=== PATIENT | male | born 1940 | race Caucasian/White ===

== ENCOUNTER 2016-04-27 11:26 | Emergency (ER) | payer OTHER ==
[~2016-04-27] VITALS: Ht 172.7 cm; Wt 90.0 kg
[~2016-04-27 11:26] MED LIST: ATOR20TA42 PO; COUM2TAB PO; COUM3TAB PO; FISH1000 PO; FLUTI44I INH; IPRA0.02 INH; KLOR20TA6 PO; LASI20TA PO; LORA10TA7 PO; PACE200T4 PO; SLO-NIACIN; TAB-TAB PO; TOPR200T PO; [UNRECOGNIZED DRUG - CODE] PO
[2016-04-27] MEDS ORDERED: SODIUM CHLORIDE 0.9% FLUSH 5 ML FLUSH IVF PRN (11:45)
[2016-04-27 12:15] LABS: AUTOMATED NEUTROPHIL # 6.3 TH/MM3 (1.8-7.7); BASOPHIL % 0.3 % (0.0-2.0); EOSINOPHIL # 0.1 TH/MM3 (0-0.4); EOSINOPHIL % 0.9 % (0.0-4.0); HEMATOCRIT 40.5 % (39.0-51.0); HEMO FLAGS DIFF FINAL; LYMPH % 10.2 % (9.0-44.0); LYMPHOCYTE # 0.9 TH/MM3 (1.0-4.8); MEAN CELL VOLUME 96.6 FL (80.0-100.0); MEAN CORPUSCULAR HEMOGLOBIN 33.5 PG (27.0-34.0); MEAN CORPUSCULAR HGB CONC 34.7 % (32.0-36.0); MONO % 12.2 % (0.0-8.0); NEUT % 76.4 % (16.0-70.0); PLATELET COUNT 103 TH/MM3 (150-450); RED BLOOD COUNT 4.19 MIL/MM3 (4.50-5.90); RED CELL DISTRIBUTION WIDTH 14.4 % (11.6-17.2); WHITE BLOOD COUNT 8.3 TH/MM3 (4.0-11.0)
--- NOTE | 2016-04-27 12:21 | PD ---
HPI Chief Complaint: shortness of breath Time Seen by Provider: 12:00 Travel History International Travel<30 days: No Contact w/Intl Traveler<30days: No Traveled to known affect area: No History of Present Illness HPI 75-year-old male with history of CHF, atrial fibrillation, sleep apnea, prediabetes who presents for evaluation of dyspnea. Since yesterday the patient has had increased dyspnea. Symptoms are worse when walking, lying him flat. He does endorse occasional slight tightness on the left side of his chest without actual pain and no discomfort at this time. He is endorse a slight cough as well. Denies fevers or chills, recent travel, calf swelling. Any dietary indiscretion. He reports that his regular physician is Dr. Vallejo , d[place] Dr. Sky. He has no other complaints at this time. [facility] Past Medical History Narrative Medical chf, atrial fibrillation, sleep apnea, hyperlipidemia Social History Alcohol Use: No Tobacco Use: Yes Allergies-Medications (Allergen,Severity, Reaction): Coded Allergies: No Known Allergies (Verified , 04/27/16) Reported Meds & Prescriptions Reported Meds & Active Scripts Active Review of Systems Except as stated in HPI: all other systems reviewed are Neg Physical Exam Narrative GENERAL: Well-developed well-nourished male in no acute distress, conversing normally. SKIN: Warm and dry. HEAD: Atraumatic. Normocephalic. EYES: Pupils equal and round. No scleral icterus. No injection or drainage. ENT: No nasal bleeding or discharge. Mucous membranes pink and moist. NECK: Trachea midline. No JVD. CARDIOVASCULAR: Regular rate and rhythm. No murmur appreciated. RESPIRATORY: No accessory muscle use. Clear to auscultation. Breath sounds equal bilaterally. No crackles no wheezing or rhonchi GASTROINTESTINAL: Abdomen soft, non-tender, nondistended. Hepatic and splenic margins not palpable. MUSCULOSKELETAL: No obvious deformities. No edema. NEUROLOGICAL: Awake and alert. No obvious cranial nerve deficits. Motor grossly within normal limits. Normal speech. Data Data Last Documented VS Vital Signs Date Time Temp Pulse Resp B/P Pulse Ox O2 Delivery O2 Flow Rate FiO2 04/27/16 13:20 91 2 04/27/16 13:13 99.0 70 22 106/59 Orders Complete Blood Count With Diff (04/27/16 11:37) Comprehensive Metabolic Panel (04/27/16 11:37) B-Type Natriuretic Peptide (04/27/16 11:37) Act Partial Throm Time (Ptt) (04/27/16 11:37) Prothrombin Time / Inr (Pt) (04/27/16 11:37) Magnesium (Mg) (04/27/16 11:37) Ckmb (Isoenzyme) Profile (04/27/16 11:37) Troponin I (04/27/16 11:37) Iv Access Insert/Monitor (04/27/16 11:37) Electrocardiogram (04/27/16 11:37) Ecg Monitoring (04/27/16 11:37) Oximetry (04/27/16 11:37) Oxygen Administration (04/27/16 11:37) Chest, Single Ap (04/27/16 11:37) Sodium Chloride 0.9% Flush (Ns Flush) (04/27/16 11:45) CKMB (04/27/16 11:44) CKMB% (04/27/16 11:44) Furosemide Inj (Lasix Inj) (04/27/16 13:30) Labs Laboratory Tests Test 04/27/16 11:44 White Blood Count 8.3 TH/MM3 Red Blood Count 4.19 MIL/MM3 Hemoglobin 14.0 GM/DL Hematocrit 40.5 % Mean Corpuscular Volume 96.6 FL Mean Corpuscular Hemoglobin 33.5 PG Mean Corpuscular Hemoglobin 34.7 % Concent Red Cell Distribution Width 14.4 % Platelet Count 103 TH/MM3 Mean Platelet Volume 10.8 FL Neutrophils (%) (Auto) 76.4 % Lymphocytes (%) (Auto) 10.2 % Monocytes (%) (Auto) 12.2 % Eosinophils (%) (Auto) 0.9 % Basophils (%) (Auto) 0.3 % Neutrophils # (Auto) 6.3 TH/MM3 Lymphocytes # (Auto) 0.9 TH/MM3 Monocytes # (Auto) 1.0 TH/MM3 Eosinophils # (Auto) 0.1 TH/MM3 Basophils # (Auto) 0.0 TH/MM3 CBC Comment DIFF FINAL Differential Comment Prothrombin Time 15.6 SEC Prothromb Time International 1.4 RATIO Ratio Activated Partial 48.3 SEC Thromboplast Time Sodium Level 137 MEQ/L Potassium Level 4.4 MEQ/L Chloride Level 102 MEQ/L Carbon Dioxide Level 27.5 MEQ/L Anion Gap 8 MEQ/L Blood Urea Nitrogen 20 MG/DL Creatinine 1.31 MG/DL Estimat Glomerular Filtration 53 ML/MIN Rate Random Glucose 228 MG/DL Calcium Level 8.6 MG/DL Magnesium Level 1.9 MG/DL Total Bilirubin 0.9 MG/DL Aspartate Amino Transf 37 U/L (AST/SGOT) Alanine Aminotransferase 52 U/L (ALT/SGPT) Alkaline Phosphatase 63 U/L Total Creatine Kinase 151 U/L Creatine Kinase MB 2.6 NG/ML Troponin I 0.03 NG/ML B-Type Natriuretic Peptide 88 PG/ML Total Protein 7.0 GM/DL Albumin 3.8 GM/DL [facility] Medical Decision Making Medical Screen Exam Complete: Yes Emergency Medical Condition: Yes Medical Record Reviewed: Yes Differential Diagnosis CHF exacerbation, bronchitis, pneumothorax, acute coronary syndrome, pulmonary embolism Narrative Course 75-year-old male with history of atrial fibrillation, on pradaxa, CHF who presents with increased dyspnea since yesterday. On examination he appears well. He reports that he took his 20 mg Lasix this morning and has been feeling improved since calling EMS. Plan is for basic lab work, chest x-ray, EKG and reassessment. The patient was initially seen on the ambulance mora where a workup was initiated. The patient will be moved to medical pod where he'll be examined and disposition by a physician. He is currently stable. Procedures EKG Prior to Arrival: Yes Rodger Gibbons Apr 27, 2016 12:21
[2016-04-27 12:22] LABS: APTT (PATIENT) 48.3 SEC (24.3-30.1); INTERNATIONAL NORMALIZED RATIO 1.4 RATIO; PROTHROMBIN TIME - PATIENT 15.6 SEC (9.8-11.6)
--- NOTE | 2016-04-27 12:25 | RADRPT ---
EXAM DATE/TIME: 04/27/2016 11:51 [facility] COMPARISON: No previous studies available for comparison. INDICATIONS : Shortness of breath. MEDICAL HISTORY : None. SURGICAL HISTORY : None. ENCOUNTER: Initial ACUITY: 1 day PAIN SCORE: 0/10 LOCATION: Bilateral chest FINDINGS: A single view of the chest demonstrates cardiomegaly with increased pulmonary vascularity and interst itial edema. The cardiomediastinal contours are unremarkable. Osseous structures are intact. CONCLUSION: Cardiomegaly and interstitial edema. Kevin Wolfe MD on April 27, 2016 at 12:19 Board Certified Radiologist. This report was verified electronically.
[2016-04-27 12:28] LABS: ALT (GPT) 52 U/L (12-78); ANION GAP 8 MEQ/L (5-15); AST (GOT) 37 U/L (15-37); BICARBONATE 27.5 MEQ/L (21.0-32.0); BLOOD UREA NITROGEN 20 MG/DL (7-18); CHLORIDE 102 MEQ/L (98-107); GLOMERULAR FILTRATION RATE 53 ML/MIN (>89); MAGNESIUM 1.9 MG/DL (1.5-2.5); POTASSIUM 4.4 MEQ/L (3.5-5.1); SODIUM (NA) 137 MEQ/L (136-145)
[2016-04-27 12:32] LABS: ALKALINE PHOSPHATASE 63 U/L (45-117); CREATINE KINASE 151 U/L (39-308); TOTAL BILIRUBIN ADULT 0.9 MG/DL (0.2-1.0)
[2016-04-27 12:44] LABS: CKMB 2.6 NG/ML (0.5-3.6)
[2016-04-27 13:13] VITALS: BP 106/59; PULSE 70; RESP 22; TEMP 99; O2SAT 91
--- NOTE | 2016-04-27 13:18 | PD ---
Physical Exam Date Seen by Provider: Apr 27, 2016 Time Seen by Provider: 13:00 Narrative I, Dr. Briggs, have reviewed the advance practice practitioner's documentation and am in agreement, met with the patient face to face, made the diagnosis, and the medical decision making was done by me. *My assessment and Findings: Patient seen and evaluated with PA, please see MIGEL Gibbons note for further details. Patient has long history of CHF, has been on Lasix 20 daily, and has noticed that he has been getting short of breath with orthopnea. He has had dyspnea on exertion. He states that he took his Lasix this morning and is already feeling better by the time he got to the ER. He states that a similar thing happened yesterday morning as well. He denies any chest pains or any other symptoms. GENERAL: Well-nourished, well-developed pleasant elderly white male patient in no acute distress. Awake and oriented 3. SKIN: Warm and dry. HEAD: Normocephalic. EYES: No scleral icterus. No injection or drainage. NECK: Supple, trachea midline. CARDIOVASCULAR: Regular rate and rhythm without murmurs, gallops, or rubs. RESPIRATORY: Breath sounds equal but decreased at the bases bilaterally. No accessory muscle use. GASTROINTESTINAL: Abdomen soft, non-tender, nondistended. MUSCULOSKELETAL: No cyanosis, or edema. BACK: Nontender without obvious deformity. No CVA tenderness. Data Data Orders Complete Blood Count With Diff (04/27/16 11:37) Comprehensive Metabolic Panel (04/27/16 11:37) B-Type Natriuretic Peptide (04/27/16 11:37) Act Partial Throm Time (Ptt) (04/27/16 11:37) Prothrombin Time / Inr (Pt) (04/27/16 11:37) Magnesium (Mg) (04/27/16 11:37) Ckmb (Isoenzyme) Profile (04/27/16 11:37) Troponin I (04/27/16 11:37) Iv Access Insert/Monitor (04/27/16 11:37) Electrocardiogram (04/27/16 11:37) Ecg Monitoring (04/27/16 11:37) Oximetry (04/27/16 11:37) Oxygen Administration (04/27/16 11:37) Chest, Single Ap (04/27/16 11:37) Sodium Chloride 0.9% Flush (Ns Flush) (04/27/16 11:45) CKMB (04/27/16 11:44) CKMB% (04/27/16 11:44) Labs Laboratory Tests Test 04/27/16 11:44 White Blood Count 8.3 TH/MM3 Red Blood Count 4.19 MIL/MM3 Hemoglobin 14.0 GM/DL Hematocrit 40.5 % Mean Corpuscular Volume 96.6 FL Mean Corpuscular Hemoglobin 33.5 PG Mean Corpuscular Hemoglobin 34.7 % Concent Red Cell Distribution Width 14.4 % Platelet Count 103 TH/MM3 Mean Platelet Volume 10.8 FL Neutrophils (%) (Auto) 76.4 % Lymphocytes (%) (Auto) 10.2 % Monocytes (%) (Auto) 12.2 % Eosinophils (%) (Auto) 0.9 % Basophils (%) (Auto) 0.3 % Neutrophils # (Auto) 6.3 TH/MM3 Lymphocytes # (Auto) 0.9 TH/MM3 Monocytes # (Auto) 1.0 TH/MM3 Eosinophils # (Auto) 0.1 TH/MM3 Basophils # (Auto) 0.0 TH/MM3 CBC Comment DIFF FINAL Differential Comment Prothrombin Time 15.6 SEC Prothromb Time International 1.4 RATIO Ratio Activated Partial 48.3 SEC Thromboplast Time Sodium Level 137 MEQ/L Potassium Level 4.4 MEQ/L Chloride Level 102 MEQ/L Carbon Dioxide Level 27.5 MEQ/L Anion Gap 8 MEQ/L Blood Urea Nitrogen 20 MG/DL Creatinine 1.31 MG/DL Estimat Glomerular Filtration 53 ML/MIN Rate Random Glucose 228 MG/DL Calcium Level 8.6 MG/DL Magnesium Level 1.9 MG/DL Total Bilirubin 0.9 MG/DL Aspartate Amino Transf 37 U/L (AST/SGOT) Alanine Aminotransferase 52 U/L (ALT/SGPT) Alkaline Phosphatase 63 U/L Total Creatine Kinase 151 U/L Creatine Kinase MB 2.6 NG/ML Troponin I 0.03 NG/ML B-Type Natriuretic Peptide 88 PG/ML Total Protein 7.0 GM/DL Albumin 3.8 GM/DL [facility] Medical Record Reviewed: Yes Supervised Visit with FRANCES: Yes Interpretation(s) Last 24 hours Impressions Chest X-Ray 04/27/16 5427 Signed Impressions: Service Date/Time: Wednesday, April 27, 2016 11:51 - CONCLUSION: Cardiomegaly and interstitial edema. Kevin Wolfe MD Laboratory Tests Test 04/27/16 11:44 Red Blood Count 4.19 MIL/MM3 (4.50-5.90) Platelet Count 103 TH/MM3 (150-450) Neutrophils (%) (Auto) 76.4 % (16.0-70.0) Monocytes (%) (Auto) 12.2 % (0.0-8.0) Lymphocytes # (Auto) 0.9 TH/MM3 (1.0-4.8) Monocytes # (Auto) 1.0 TH/MM3 (0-0.9) Prothrombin Time 15.6 SEC (9.8-11.6) Activated Partial 48.3 SEC Thromboplast Time (24.3-30.1) Blood Urea Nitrogen 20 MG/DL (7-18) Creatinine 1.31 MG/DL (0.60-1.30) Estimat Glomerular Filtration 53 ML/MIN (>89) Rate Random Glucose 228 MG/DL (74-106) Differential Diagnosis Shortness of breathCHF versus pneumonia versus COPD exacerbation Narrative Course BNP is not significantly elevated. Chest x-ray shows some signs of interstitial edema concerning for underlying mild CHF. He reports improvement after taking Lasix. At this point, my plan would be to increase his dose of Lasix since this appears to be helping and have him follow-up with residential roofer helper. Return for any worsening in symptoms as necessary. The plan has been discussed with him and he states understanding. Diagnosis Primary Impression: CHF exacerbation Med/Other Pt SpecificInfo: Existing Med Changed (double dose of Lasix to 40 mg daily) Disposition: 01 DISCHARGE HOME Condition: Stable Phoenix Briggs MD Apr 27, 2016 13:18
[2016-04-27] MEDS ORDERED: FUROSEMIDE 40 MG/4 ML VIAL IV PUSH ONE (13:30)
[2016-04-27] MEDS ORDERED: METF1000 PO (13:58)
[2016-04-27] MEDS ORDERED: ATOR10TA15 PO (13:58)
[2016-04-27] MEDS ORDERED: ALAV10TA10 PO (13:58)
[2016-04-27] MEDS ORDERED: DILT-64 PO (13:58)
[2016-04-27] MEDS ORDERED: ISOS30TA3 PO (13:58)
[2016-04-27] MEDS ORDERED: ALLO100T PO (13:58)
[2016-04-27] MEDS ORDERED: FURO1TAB62 PO (13:58)
[2016-04-27] MEDS ORDERED: LEVO50TA4 PO (13:58)
[2016-04-27] MEDS ORDERED: TOPR100T PO (13:58)
[2016-04-27] MEDS ORDERED: DIGO0.12 PO (13:58)
[2016-04-27] MEDS ORDERED: POTA1TAB4 PO (13:58)
[2016-04-27] MEDS ORDERED: LOSA25TA PO (13:58)
[2016-04-27] MEDS ORDERED: PRAD150C PO (13:58)
--- NOTE | 2016-04-28 08:55 | EKG ---
Date Performed: 04/27/2016 Time Performed: 13:09:13 PTAGE: 75 years EKG: ATRIAL FIBRILLATION ABNORMAL RHYTHM ECG PREVIOUS TRACING : 01/01/2010 04.27 DOCTOR: Jaden Jorge Interpretating Date/Time 04/28/2016 08:50:33
== END 2016-04-27 14:42 | disposition home or self-care (01) ==
LOC: NEPC 11:26
DX: I50.9 Heart failure, unspecified (principal); I51.7 Cardiomegaly; I48.91 Unspecified atrial fibrillation; G47.30 Sleep apnea, unspecified
CPT/HCPCS: 71010; 80053; 82550; 82552; 83735; 83880; 84484; 85025; 85610; 85730; 93005; 96374; 99285; J1940

== ENCOUNTER 2017-03-24 06:47 | Day surgery (SDC) | payer OTHER ==
[~2017-03-24 06:47] MED LIST changes: +ALAV10TA10 PO; +ALLO100T PO; +ATOR10TA15 PO; -ATOR20TA42 PO; -COUM2TAB PO; -COUM3TAB PO; +DIGO0.12 PO; +DILT240C44 PO; -FISH1000 PO; -FLUTI44I INH; +FURO1TAB62 PO; -IPRA0.02 INH; +ISOS30TA3 PO; -KLOR20TA6 PO; -LASI20TA PO; +LEVO50TA4 PO; -LORA10TA7 PO; +LOSA25TA PO; +METF1000 PO; -PACE200T4 PO; +POTA1TAB4 PO; +PRAD150C PO; -SLO-NIACIN; -TAB-TAB PO; +TOPR100T PO; -TOPR200T PO; -[UNRECOGNIZED DRUG - CODE] PO
[2017-03-24] MEDS ORDERED: APIX5TAB PO (07:18)
[2017-03-24] MEDS ORDERED: POVIDONE IODINE 5% (ANTISEPSIS KIT) 4 APPLICATIONS EACH NARE SCH (07:30)
[2017-03-24] MEDS ORDERED: NS 1000 ML IV SCH (07:30)
[2017-03-24] MEDS ORDERED: ceFAZolin 2 GM PREMIX 50 ML IV SCH (07:30)
[2017-03-24] MEDS ORDERED: MUPIROCIN 2% OINT 1 APPLIC/GM SYR NASAL SCH (07:30)
[2017-03-24] MEDS ORDERED: CHLORHEXIDINE GLUCONATE 2 % 1 PACK (2 CLOTHS) TOPICAL SCH (07:30)
[2017-03-24] MEDS ORDERED: MIDAZOLAM HCL 5 MG/ML VIAL (1 ML) ONE (07:58)
--- NOTE | 2017-03-24 09:49 | MA ---
cc: FRANCK KENNEDY MD DATE 03/24/2017 PERFORMING PHYSICIAN Franck Kennedy MD INDICATION Syncope PROCEDURES PERFORMED 1. 15 minutes of moderate IV sedation. 2. Loop recorder insertion. DESCRIPTION OF PROCEDURE The patient was brought to the DOC unit in the postabsorptive state. After informed consent was obtained, 3 mg of Versed and 75 mcg Fentanyl was given for moderate IV sedation. Next, a [employer] LINQ loop recorder was inserted subcutaneously to the left chest. The patient tolerated procedure well without any apparent complications. Tachybrady pause and atrial fibrillation detection was enabled. The serial number was [id number]. The initial R-wave was 0.71 mV. MD JONATHAN Weir/KAYLA /8:38 AM /9:41 AM
== END 2017-03-24 09:32 | disposition home or self-care (01) ==
LOC: HDIC 06:47 → HDOC 06:47
PROVIDERS: ATTEND Nuclear Medicine Nuclear Cardiology
DX: R55 Syncope and collapse (principal)
CPT/HCPCS: 33282; 99152; C1764; J0690; J2250; J3010

== ENCOUNTER 2017-05-10 06:08 | Day surgery (SDC) | payer OTHER ==
[~2017-05-10] VITALS: Ht 172.7 cm; Wt 87.2 kg
[2017-05-10] VITALS (13 sets, daily range): BP systolic 106–146; BP diastolic 64–87; PULSE 60–91; RESP 16; TEMP 97.3–98.4; O2SAT 92–97
[~2017-05-10 06:08] MED LIST changes: +APIX5TAB PO; -PRAD150C PO
[2017-05-10] MEDS ORDERED: ceFAZolin 2 GM PREMIX 50 ML IV SCH (06:45)
[2017-05-10] MEDS: NS 1000 ML IV SCH (06:45)
[2017-05-10] MEDS ORDERED: LORazepam 1 MG TAB SL SCH (06:45)
[2017-05-10] MEDS ORDERED: VANCOMYCIN 1000 MG/NS 250 ML IV SCH ×2 (06:45)
[2017-05-10] MEDS ORDERED: Hold AM Insulin & AM Hypoglycemic medications in diabetic patients PRN (06:45)
[2017-05-10] MEDS ORDERED: LACTATED RINGER'S 1000 ML IV PRN (06:45)
[2017-05-10] MEDS ORDERED: MUPIROCIN 2% OINT 1 APPLIC/GM SYR NASAL SCH (06:45)
[2017-05-10] MEDS ORDERED: CHLORHEXIDINE GLUCONATE 2 % 1 PACK (2 CLOTHS) TOPICAL PRN (06:45)
[2017-05-10] MEDS ORDERED: POVIDONE IODINE 5% (ANTISEPSIS KIT) 4 APPLICATIONS EACH NARE SCH (06:45)
[2017-05-10] MEDS ORDERED: POVIDONE IODINE 5% (ANTISEPSIS KIT) 4 APPLICATIONS EACH NARE PRN (06:45)
[2017-05-10] MEDS ORDERED: CHLORHEXIDINE GLUCONATE 2 % 1 PACK (2 CLOTHS) TOPICAL SCH (06:45)
[2017-05-10] MEDS ORDERED: NO Heparin, Lovenox, Coumadin at least 12 hours prior to procedure. PRN (06:45)
[2017-05-10] MEDS ORDERED: ESSE250T PO (07:20)
[2017-05-10] MEDS ORDERED: VITATAB43 PO (07:20)
[2017-05-10] MEDS ORDERED: ZOLP5TAB3 PO (07:20)
[2017-05-10 07:21] LABS: AUTOMATED NEUTROPHIL # 3.5 TH/MM3 (1.8-7.7); BASOPHIL % 0.6 % (0.0-2.0); EOSINOPHIL # 0.1 TH/MM3 (0-0.4); EOSINOPHIL % 1.9 % (0.0-4.0); HEMOGLOBIN 15.6 GM/DL (13.0-17.0); LYMPH % 30.9 % (9.0-44.0); MEAN CORPUSCULAR HGB CONC 35.4 % (32.0-36.0); MEAN PLATELET VOLUME 10.2 FL (7.0-11.0); MONOCYTE # 0.9 TH/MM3 (0-0.9); NEUT % 52.6 % (16.0-70.0); PLATELET COUNT 157 TH/MM3 (150-450); RED BLOOD COUNT 4.45 MIL/MM3 (4.50-5.90); RED CELL DISTRIBUTION WIDTH 14.4 % (11.6-17.2); WHITE BLOOD COUNT 6.6 TH/MM3 (4.0-11.0)
[2017-05-10 07:31] LABS: INTERNATIONAL NORMALIZED RATIO 1.1 RATIO; PROTHROMBIN TIME - PATIENT 10.7 SEC (9.8-11.6)
[2017-05-10 07:33] LABS: BICARBONATE 30.2 MEQ/L (21.0-32.0); CALCIUM 9.4 MG/DL (8.5-10.1); CREATININE 1.24 MG/DL (0.60-1.30)
[2017-05-10] MEDS ORDERED: LIDOCAINE HCL 2% 50 ML VIAL ONE ×2 (07:52→08:51)
[2017-05-10] MEDS ORDERED: VANCOMYCIN 500 MG VIAL ONE (07:53)
[2017-05-10] MEDS ORDERED: MIDAZOLAM HCL 2 MG/2 ML VIAL ONE (08:13)
[2017-05-10] MEDS ORDERED: SODIUM CHLORIDE 0.9% FLUSH 10 ML FLUSH IV FLUSH PRN (09:00)
[2017-05-10] MEDS ORDERED: ONDANSETRON HCL 4 MG/2 ML VIAL IV PUSH PRN (09:00)
[2017-05-10] MEDS: SODIUM CHLORIDE 0.9% FLUSH 10 ML FLUSH IV FLUSH SCH ×2 (09:00→22:06)
--- NOTE | 2017-05-10 09:17 | CATHPROC ---
[facility] HIS Report Study Information Study Number Admission Scheduled Start Study Start [id number] May 10 2017 6:08AM 05/10/2017 May 10 2017 6:57AM [place] [facility] Cardiac Pacer/ICD Admit Source Facility Department Other [facility] Physician and Clinical Staff Initial Kati Tilley Installer Oscar Reboleldo,RT(R) Other Jessica Go,DEMETRA Recorder Moses MCCRARY, Larissa Staton,RT(R) TECH2 Procedures Performed Procedure Lead Insertion Equipment Time Returned Telephone Equipment Appraiser Description Size Mfg Part Number Used/Scraped DERMABOND, ADHESIVE SKIN [id number] 06:59 CORDIS/PACER * Used GLUE MINI *[id number] 06:59 MEDLINE INDUSTRIES SUTURE, STRIP PLUS 1/2" * Used *[id number] 06:59 MEDLINE PACER OWENS, LIMB * 2530 *[id number] Used [id number] 06:59 MEDLINE PACER PACK, PACER CUSTOM * Used *[id number] 08:21 Landscape Mobile PACER SAFE SHEATH, FR7, 13CM FR 7 [id number] Used 08:21 [employer]scape Mobile PACER SAFE SHEATH, FR7, 13CM FR 7 [id number] Used 08:23 Needle Sponge Count 1 1 Used SUTURE, 0 ETHIBOND [CT1] (CX21D), 8pk SUTURE, 2-0 VICRYL [CT1] ([id number]) SUTURE, 2-0 VICRYL [CT1] ([id number]) [id number] 06:59 [employer],WARM AIR CCL * Used *[id number] [facility] PAD, ELECTROSURGICAL 06:59 * [id number] *[id number] Used SURGICAL GROUNDING ORANGE LEAD, CAPSURE FIX NOVUS, 4076-52CM 08:40 VITATRON MEDTRONIC 52CM Used 52CM *[id number] LEAD, CAPSURE FIX NOVUS, 4076-58CM 08:35 VITATRON MEDTRONIC 58CM Used 58CM *[id number] PACEMAKER, ADVISA DR MRI 08:37 VITATRON [employer]TRON[employer] OEA-DDDR [id number] Used SURESCAN [id number] 06:59 [employer] BRENDA. / * Used *[id number] Labs Hgb (g/dl) Hct (%) WBC (l/cumm) 11.60-17.00 35.00-51.00 4.00-11.00 15.6 44 6.6 Glucose (mg/dl) BUN (mg/dl) Creatinine (mg/dl) BUN:Creatinine (1:x) 74.00-106.00 7.00-18.00 0.50-1.30 10.00-20.00 141 23 1.2 19.2 Na (meq/l) K (meq/l) 136.00-145.00 3.50-5.10 139 4.3 INR (PTT:PT) 0.90-1.10 1.1 CPK-MB (ng/ML) 0.50-3.60 Not Drawn Medication Medication Total Dose (Bolus/Oral) Medication Total Dosage/Unit 2% XYLOCAINE 50 mL Medications (Bolus/Oral) Medication Time Given Dosage/Unit Administered By Reason 2% XYLOCAINE 05/10/2017 8:29:23 AM 50 mL Kati Santana 50 mL 2% XYLOCAINE given in lab by Kati Santana via Subcutaneous. Ordered by Kati Santana. Medication (Drip) Medication Time Given Dosage/Unit Concentration/Unit Diluent (ml) Solution ANCEF 05/10/2017 8:11:45 AM 2 g 2 g ANCEF given in lab by Jessica Go RN via Peripheral IV. Ordered by Kati Santana. VANCOMYCIN DRIP 05/10/2017 8:11:18 AM 1 g 1 g VANCOMYCIN DRIP given in lab by Jessica Go, DEMETRA via Peripheral IV. Ordered by Kati Santana. Chronological Log Time Study Chronological Log 7:55:49 MD arrived. 8:00:10 Patient arrived via Bed PT LEFT UPPER CHEST SIGNED BY DR SANTANA . 8:00:53 Patient Name, D.O.B, / Armband Verified By R.N. 8:01:16 Consent signed by the physician and the patient and verified by the [facility] staff. 8:01:24 Pre-op and post- op instructions given; patient acknowledges understanding of instructions. 8:03:50 History and physical on the chart or being dictated. 8:03:51 Anesthesia at bedside. Assumes care of patient. 8:11:18 1 g VANCOMYCIN DRIP given in lab by Jessica Go, DEMETRA via Peripheral IV. Ordered by Kati Neal. 8:11:45 2 g ANCEF given in lab by Jessica Go, DEMETRA via Peripheral IV. Ordered by Kati Santana. 8:12:05 Disposable Defibrillator Pads Placed On Patient. 8:12:11 David Prominences Protected 8:12:18 A # 20 IV was noted in the Antecubital (right). Grade = 0 8:12:42 A # 20 IV was noted in the Antecubital (left). Grade = 0 8:13:15 Table restraints applied according to hospital policy 8:13:40 Bovie ground pad applied to: RIGHT THIGH 8:13:58 2% CHLORHEXIDINE GLUCONATE WASH AND NASAL SWIPE DONE PRIOR TO PROCEDURE. 8:16:18 Left Upper Chest Prepped Times Two. 8:21:42 MD paged First Sponge And Instrument Count Done by Rajiv Lopes RN. 8:23:12 Hypo's: 3, Sponges: 20 sponges, 1 Bovie/scratch:1 bovie/scratch Sutures: 10, Blades: 1 Instruments: 26 8:26:16 MD arrived. Time Out. Correct patient, procedure, procedure equipment, site and side verified with physician present. Time 8:28:54 concurred by MD, individual staff and PRESIDENT AND CEO. 8:29:20 Case Start 8:29:23 50 mL 2% XYLOCAINE given in lab by Kati Santana via Subcutaneous. Ordered by Kati Santana. 8:31:33 Vascular access was obtained in the Subclav. Vein (Lft. 8:32:01 Vascular access was obtained in the Subclav. Vein (Lft. 8:32:53 Surgical Incision Made. 8:32:56 A pocket was created at the L Upper Chest. 8:34:21 A SAFE SHEATH, FR7, 13CM FR 7 was advanced into the Subclav. Vein (Lft using the Modified Se yusufinger technique. 8:34:38 A LEAD, CAPSURE FIX NOVUS, 58CM 58CM was inserted and positioned in the RV. 8:35:29 Lead placement verified under fluoroscopy 8:36:50 The RV lead impedance and threshold being tested. 8:37:53 SHEATH REMOVED 8:38:20 The RV lead was sutured to the fascia. 8:39:18 A SAFE SHEATH, FR7, 13CM FR 7 was advanced into the Subclav. Vein (Lft using the Modified Se yusufinger technique. 8:40:34 A LEAD, CAPSURE FIX NOVUS, 52CM 52CM was inserted and positioned in the RA. 8:40:47 Lead placement verified under fluoroscopy 8:41:37 The Atrial lead impedance and threshold is being tested. 8:42:06 SHEATH REMOVED 8:42:33 The Atrial lead was sutured to the fascia. 8:44:47 Pocket flushed with antibiotic solution 8:45:04 A PACEMAKER, TAINA BENITEZ OEA-DDDR was connected and placed in the pocket. 8:47:22 The pocket was closed. Second Sponge And Instrument Count Done by Jessica Go, DEMETRA. 8:48:15 Hypo's:3 hypo's, Sponges:20 sponges,1 Bovie/scratch:1 bovie/scratch Sutures: 10, Blades: 1, 8:52:50 Loop Recorder Removed. 8:54:03 LOOP Pocket flushed with antibiotic solution 8:54:50 Case End 8:54:58 Implant Procedure was performed. 8:55:06 A PPM Implant . (Dual) 8:56:57 Steri-strips and a sterile dressing applied to LOOP RECORDER site. The Final Sponge And Instrument Count Done by Kati Santana. 9:04:27 Hypo's:3 hypo's, Sponges: 20sponges, 1 Bovie/scratch:1 bovie/scratch Sutures:11, Blades: 1, Instruments: 26~, 9:05:33 Bedside Report will be given. 9:05:38 Steri-strips and a sterile dressing applied to site. 9:07:50 DOCU called. Spoke to MARLI Agosto RN 9:08:17 Implantable Device card placed in patient's chart. 9:16:28 A sling was placed on the affected arm. 9:16:42 Defibrillator and ground pads removed. Skin intact. 9:16:45 Patient moved to [facility] End Study - Contrast Media Used In Study Contrast Total Opened (mL) Total Used (mL) Total Wasted (mL) Unspecified 0 0 0 End Study - Maximum Contrast Load Max Contrast Load (mL) 360.4 End Study - Radiation Exposure Fluoro Time (minutes) 2.5 End Study - Sponge/Needle Count Sponge Count Pre Sponge Count Post Needle Count Pre Needle Count Post Procedure Procedure Procedure Procedure 20 20 3 3 End Study - Patient Disposition Complications Transferred To Interventional Outcome No Telemetry Bed successful
[2017-05-10] MEDS ORDERED: DO NOT ADM ANY ANTICOAGULANT DRUGS PRN (10:00)
[2017-05-10] MEDS: ACETAMINOPHEN/CODEINE 300 MG/30 MG TAB PO PRN ×4 (10:13→23:33)
--- NOTE | 2017-05-10 10:36 | RADRPT ---
EXAM DATE/TIME: 05/10/2017 09:53 [facility] COMPARISON: CHEST SINGLE AP, April 27, 2016, 11:51. INDICATIONS : Evaluate for pneumothorax. Post pacemaker. MEDICAL HISTORY : Myocardial infarction. Hypercholesterolemia. Congestive heart failure. GERD. Arthritis. Osteoporo sis. SURGICAL HISTORY : Appendectomy. Cholecystectomy. ENCOUNTER: Initial ACUITY: 1 day PAIN SCORE: 4/10 LOCATION: Bilateral chest FINDINGS: 2 AP views of the chest demonstrate cardiac silhouette size at the upper limits for normal. Left ches t wall cardiac pacing device is present with lead tips overlying the region of the right heart. No ef fusion, consolidation, or pneumothorax is seen. Bones demonstrate no acute finding. CONCLUSION: No pneumothorax is visualized following pacemaker placement. Bob Tripathi MD on May 10, 2017 at 10:34 Board Certified Radiologist. This report was verified electronically.
[2017-05-10] MEDS ORDERED: PROPOFOL 200 MG/20 ML AMP IV ONE (12:00)
[2017-05-10] MEDS ORDERED: LIDOCAINE HCL 1% PF 5 ML SYRINGE OTHER ONE (12:00)
[2017-05-10] MEDS: ceFAZolin 2 GM PREMIX 50 ML IV SCH ×2 (15:58→23:33)
[2017-05-10] MEDS ORDERED: METOPROLOL SUCCINATE 50 MG EXTENDED RELEASE TAB PO SCH (21:00)
[2017-05-10] MEDS ORDERED: TEMAZEPAM 15 MG CAP PO PRN (21:00)
[2017-05-10] MEDS ORDERED: LEVOTHYROXINE SODIUM 50 MCG TAB PO SCH (21:00)
[2017-05-10] MEDS ORDERED: ATORVASTATIN 10 MG TAB PO SCH (21:00)
[2017-05-10] MEDS ORDERED: ZOLPIDEM TARTRATE 5 MG TAB PO PRN (21:00)
[2017-05-10] MEDS: APIXABAN 5 MG TABLET PO SCH (22:06)
[2017-05-11] VITALS (12 sets, daily range): BP systolic 110–127; BP diastolic 66–71; PULSE 61–90; RESP 16–18; TEMP 97.3–97.7; O2SAT 94–95
[2017-05-11] MEDS: NS 1000 ML IV SCH (06:03)
[2017-05-11] MEDS ORDERED: DILTIAZEM-CD 240 MG CAP ER PO SCH ×2 (07:00→09:00)
[2017-05-11] MEDS: ACETAMINOPHEN/CODEINE 300 MG/30 MG TAB PO PRN (07:04)
[2017-05-11] MEDS: ceFAZolin 2 GM PREMIX 50 ML IV SCH (08:00)
[2017-05-11] MEDS: SODIUM CHLORIDE 0.9% FLUSH 10 ML FLUSH IV FLUSH SCH (08:30)
[2017-05-11] MEDS: APIXABAN 5 MG TABLET PO SCH (08:30)
[2017-05-11] MEDS ORDERED: CEPH-460 PO (08:38)
--- NOTE | 2017-05-11 08:41 | PD.CARD.PN ---
Subjective Subjective Remarks Feels okay. Objective Medications Current Medications Medications (Trade) Dose Ordered Sig/Ahsan Route Start Time Stop Time Status Last Admin Miscellaneous Information Hold AM Insulin & ... UNSCH PRN .XX 05/10/17 06:45 05/14/17 06:44 Miscellaneous Information NO Heparin, Loven... UNSCH PRN .XX 05/10/17 06:45 05/14/17 06:44 Sodium Chloride 1,000 ml @ 30 mls/hr Q24H IV 05/10/17 06:45 05/10/17 06:45 Cefazolin Sodium/ Dextrose 50 ml @ 100 mls/hr PHARMACY ANCILLARY IV 05/10/17 06:45 05/13/17 06:44 05/10/17 08:11 Vancomycin HCl 1000 mg/Sodium Chloride 250 ml @ 250 mls/hr PHARMACY ANCILLARY IV 05/10/17 06:45 05/13/17 06:44 05/10/17 08:11 (Ativan) 1 mg PHARMACY ANCILLARY SL 05/10/17 06:45 05/13/17 06:44 05/10/17 07:41 (Betadine 5% Antisepsis Kit) 2 applic PHARMACY ANCILLARY EACH NARE 05/10/17 06:45 05/13/17 06:44 05/10/17 07:25 (Bactroban Nasal 2% Oint) 1 applic PHARMACY ANCILLARY NASAL 05/10/17 06:45 05/13/17 06:44 (Chlorhexidine 2% Cloth) 3 pack PHARMACY ANCILLARY TOPICAL 05/10/17 06:45 05/13/17 06:44 05/10/17 07:25 Lactated Ringer's 1,000 ml @ 30 mls/hr Q24H PRN IV 05/10/17 06:45 05/13/17 06:44 (Betadine 5% Antisepsis Kit) 1 applic PHARMACY ANCILLARY PRN EACH NARE 05/10/17 06:45 05/13/17 06:44 (Chlorhexidine 2% Cloth) 3 pack PHARMACY ANCILLARY PRN TOPICAL 05/10/17 06:45 05/13/17 06:44 (Restoril) 15 mg HS PRN PO 05/10/17 21:00 (Zofran Inj) 4 mg Q4H PRN IV PUSH 05/10/17 09:00 (Tylenol-Codeine #3) 1 tab Q4H PRN PO 05/10/17 09:00 05/11/17 07:04 (Tylenol-Codeine #3) 2 tab Q4H PRN PO 05/10/17 09:00 05/10/17 23:33 (NS Flush) 2 ml BID IV FLUSH 05/10/17 09:00 05/11/17 08:30 (NS Flush) 2 ml UNSCH PRN IV FLUSH 05/10/17 09:00 Miscellaneous Information ALL NURSING DEPARTME... UNSCH PRN .XX 05/10/17 10:00 05/11/17 09:59 (Zyloprim) 100 mg AC DINNER PO 05/11/17 16:00 (Eliquis) 5 mg BID PO 05/10/17 21:00 05/11/17 08:30 (Lipitor) 10 mg HS PO 05/10/17 21:00 05/10/17 22:06 (Lanoxin) 0.125 mg DAILY PO 05/11/17 09:00 05/11/17 08:30 (Lasix) 20 mg DAILY PO 05/11/17 09:00 05/11/17 08:30 (Synthroid) 50 mcg HS PO 05/10/17 21:00 05/10/17 23:33 (Cozaar) 25 mg DAILY PO 05/11/17 09:00 05/11/17 08:30 (Glucophage) 1,000 mg BIDPC PO 05/11/17 09:00 05/11/17 08:30 (Toprol Xl) 100 mg HS PO 05/10/17 21:00 05/10/17 22:06 (KCl) 20 meq DAILY PO 05/11/17 09:00 05/11/17 08:30 (Ambien) 5 mg HS PRN PO 05/10/17 21:00 05/10/17 22:05 (Allbee C) 1 tab DAILY PO 05/11/17 09:00 (Cardizem Cd) 240 mg Q12H PO 05/11/17 07:00 05/11/17 08:29 Vital Signs / I&O Vital Signs Date Time Temp Pulse Resp B/P (MAP) Pulse Ox O2 Delivery O2 Flow Rate FiO2 05/11/17 07:01 69 05/11/17 06:00 61 05/11/17 05:00 67 05/11/17 04:00 90 05/11/17 03:00 97.3 77 16 110/66 (81) 94 05/11/17 03:00 94 Room Air 05/11/17 03:00 74 05/11/17 02:00 78 05/11/17 01:00 77 05/11/17 00:19 16 05/11/17 00:00 77 05/10/17 23:00 94 Room Air 05/10/17 23:00 97.4 77 16 106/64 (78) 92 05/10/17 23:00 75 05/10/17 22:00 77 05/10/17 21:00 78 05/10/17 20:00 78 05/10/17 19:00 97.3 76 16 119/68 (85) 94 05/10/17 19:00 94 Room Air 05/10/17 19:00 91 05/10/17 18:17 60 05/10/17 17:15 77 05/10/17 16:00 76 05/10/17 15:42 98.1 82 16 119/72 (88) 95 05/10/17 15:00 76 05/10/17 14:13 77 05/10/17 13:16 98.4 64 16 108/68 (81) 93 05/10/17 11:13 14 05/10/17 09:27 97 Room Air I/O 05/10/17 05/10/17 05/10/17 05/11/17 05/11/17 05/11/17 07:00 15:00 23:00 07:00 15:00 23:00 Intake Total 972 ml 530 ml Balance 972 ml 530 ml Intake Oral 922 ml 480 ml IV Total 50 ml 50 ml # Voids 3 3 # Bowel Movements 0 0 Physical Exam GENERAL: Well-nourished, well-developed patient. SKIN: Warm and dry. Incision clean, dry, without erythema or drainage. HEAD: Normocephalic. EYES: No scleral icterus. No injection or drainage. NECK: Supple, trachea midline. No JVD or lymphadenopathy. CARDIOVASCULAR: Regular rate and rhythm without murmurs, gallops, or rubs. RESPIRATORY: Breath sounds equal bilaterally. No accessory muscle use. GASTROINTESTINAL: Abdomen soft, non-tender, nondistended. EXTREMITIES: No cyanosis, or edema. NEUROLOGICAL: Awake, alert, and oriented x 3. Non-focal. Imaging Last Impressions Chest X-Ray 05/10/17 0000 Signed Impressions: Service Date/Time: Wednesday, May 10, 2017 09:53 - CONCLUSION: No pneumothorax is visualized following pacemaker placement. Bob Tripathi MD Assessment and Plan Problem List: (1) Bradycardia ICD Codes: R00.1 - Bradycardia, unspecified Plan: Pacing appropriately. (2) S/P cardiac pacemaker procedure ICD Codes: Z95.0 - Presence of cardiac pacemaker Plan: Device function appropriate, chest x-ray shows no pneumothorax. Stable for discharge home. Follow-up with Dr. Stoddard in 2 weeks per my discussion with him. Pati Perdomo May 11, 2017 08:41
[2017-05-11] MEDS ORDERED: DIGOXIN 0.125 MG TAB PO SCH (09:00)
[2017-05-11] MEDS ORDERED: VITAMIN B COMPLEX/VIT C TAB PO SCH (09:00)
[2017-05-11] MEDS ORDERED: FUROSEMIDE 20 MG TAB PO SCH (09:00)
[2017-05-11] MEDS ORDERED: POTASSIUM CHLORIDE 20 MEQ CONTROLLED RELEASE TAB PO SCH (09:00)
[2017-05-11] MEDS ORDERED: LOSARTAN 25 MG TAB PO SCH (09:00)
[2017-05-11] MEDS ORDERED: metFORMIN HCL 500 MG TAB PO SCH (09:00)
--- NOTE | 2017-05-11 09:30 | EKG ---
Date Performed: 05/10/2017 Time Performed: 07:38:40 PTAGE: 76 years EKG: Atrial flutter with controlled ventricular response Inferior T wave changes are nonspecific Abnormal ECG Compared to PREVIOUS TRACING , atrial flutter is new. PREVIOUS TRACIN04/27/2016 13.09 DOCTOR: Rogelio Hansen Interpretating Date/Time 05/11/2017 09:28:24
--- NOTE | 2017-05-11 09:38 | EKG ---
Date Performed: 05/10/2017 Time Performed: 10:43:38 PTAGE: 76 years EKG: Possible atrial flutter Inferior and septal ST-T changes are nonspecific Abnormal ECG Since the prior tracing, there has been no significant change PREVIOUS TRACING : 05/10/2017 07.38 DOCTOR: Rogelio Hansen Interpretating Date/Time 05/11/2017 09:36:23
--- NOTE | 2017-05-11 11:29 | EKG ---
Date Performed: 05/10/2017 Time Performed: 14:44:40 PTAGE: 76 years EKG: Possible atrial flutter Extensive T wave changes are nonspecific Abnormal ECG Since the tracy or tracing, there has been no significant change PREVIOUS TRACING DOCTOR: Kumar Marie Interpretating Date/Time 05/11/2017 11:28:23
--- NOTE | 2017-05-11 11:30 | EKG ---
Date Performed: 05/11/2017 Time Performed: 06:30:22 PTAGE: 76 years EKG: Atrial flutter with 4:1 A-V block IV conduction defect Inferior T wave changes are nonspeci fic Abnormal ECG Since the prior tracing, there has been no significant change PREVIOUS TRACING : 05/10/2017 14.44 DOCTOR: Kumar Marie Interpretating Date/Time 05/11/2017 11:28:33
[2017-05-11] MEDS ORDERED: ALLOPURINOL 100 MG TAB PO SCH (16:00)
== END 2017-05-11 11:30 | disposition home or self-care (01) ==
LOC: HDIC 06:08 → HDOC 06:08 → HCPC 13:31 → HDOC 05-11 11:30
PROVIDERS: ATTEND Internal Medicine Interventional Cardiology
DX: I49.5 Sick sinus syndrome (principal); R06.00 Dyspnea, unspecified; I11.0 Hypertensive heart disease with heart failure; I50.9 Heart failure, unspecified; E11.9 Type 2 diabetes mellitus without complications; E78.5 Hyperlipidemia, unspecified; I48.91 Unspecified atrial fibrillation; I25.10 Atherosclerotic heart disease of native coronary artery without angina pectoris; F17.290 Nicotine dependence, other tobacco product, uncomplicated; Z79.01 Long term (current) use of anticoagulants
CPT/HCPCS: 00530; 33208; 71045; 80048; 85025; 85610; 85730; 86850; 86900; 86901; 93005; C1785; C1898; J0690; J2250; J3010; J3370; J7030; J7050; C1779